=== PATIENT | male | born 1960 | race Caucasian/White ===

== ENCOUNTER 2022-07-20 02:37 | Inpatient (IN) | payer MEDICARE, MEDICAID, SELFPAY ==
[2022-07-20] VITALS (42 sets, daily range): BP systolic 63–106; BP diastolic 31–73; PULSE 83–135; RESP 16–40; TEMP 36.6–37.4; O2SAT 83–99; BMI 21.9
--- NOTE | 2022-07-20 | ECHO_ITS ---
Patient Info Name: Jenaro Calvo Age: 61 years : 1960 Gender: Male Ht: 73 in Wt: 166 lbs BSA: 1.97 m2 HR: 106 bpm BP: 106 / 72 mmHg Heart Rhythm: Tachycardia, Sinus Rhythm Technical Quality: Fair Exam Date: 07/20/2022 12:11 PM Exam Location: [facility] Pulmonary Patient Status: Inpatient Admit Date: 07/20/2022 Staff Ordering Physician: Dennis Lazo MD Roller Skater: La Campbell RDCS Attending Provider: Ute Lutz MD Referring Physician: Clifton CLARKE; Exam Type: CA echo doppler color flow Study Info Indications - elevated bnp, low bp elevated trop Complete two-dimensional, color flow and Doppler transthoracic echocardiogram is performed. Summary 1. Complete two-dimensional, color flow and Doppler transthoracic echocardiogram is performed. 2. Left ventricular chamber dimension is normal. 3. Left ventricular systolic function is mildly reduced, estimated at 45-50%. 4. The left ventricular diastolic function is grade I diastolic dysfunction. 5. Right ventricular systolic function is normal. 6. Suspected patent foramen ovale visualized by color flow imaging. 7. There is moderate mitral valve regurgitation. 8. There is moderate tricuspid valve regurgitation. Left Ventricle Left ventricular chamber dimension is normal. Left ventricular systolic function is mildly reduced, estimated at 45-50%. There is no increased left ventricular wall thickness. The left ventricular diastolic function is grade I diastolic dysfunction. Right Ventricle Right ventricular chamber dimension is normal. Right ventricular systolic function is normal. Left Atria Left atrial chamber dimension is normal. Right Atria Right atrial chamber dimension is normal. Atrial Septum Suspected patent foramen ovale visualized by color flow imaging. Aortic Valve The aortic valve is trileaflet. There is mild aortic valve sclerosis. There is no aortic valve stenosis. There is no aortic valve regurgitation. Pulmonic Valve The pulmonic valve is not well visualized. Mitral Valve The mitral valve has normal leaflets. There is no mitral valve stenosis. There is moderate mitral valve regurgitation. Tricuspid Valve There is no significant tricuspid valve stenosis. There is moderate tricuspid valve regurgitation. Pericardium/Pleural There is no pericardial effusion. Inferior Vena Cava Normal inferior vena cava with <50% collapse upon inspiration consistent with normal right atrial pressure, 3 mmHg. Aorta The aortic root size at the sinus of Valsalva is normal. Left Ventricular Outflow Tract Name Value Normal LVOT 2D LVOT Diameter 2.0 cm LVOT Doppler LVOT Peak Gradient 4 mmHg LVOT Mean Gradient 2 mmHg LVOT VTI 16 cm LVOT VTI/AV VTI Ratio 0.7 LVOT Stroke Volume 52 ml LVOT CO 5.1 l/min LVOT CI 2.6 l/min/m2 Pulmonic Valve
--- NOTE | ~2022-07-20 | XR_ITS ---
Portable chest x-ray Comparison: None Clinical History: Dyspnea Findings: Extensive right lower lobe consolidation is present. Left lung clear. Cardiomediastinal s ilhouette is stable. Bones and soft tissues are unremarkable. Impression: Right lower lobe pneumonia. Reviewed, dictated and finalized at location . Impression: Right lower lobe pneumonia.
--- NOTE | ~2022-07-20 | CT_ITS ---
Non-contrast CT scan of the Abdomen and Pelvis Clinical indication: Shortness of breath, fever, abdominal pain Technique: 2.5 mm axial scans were obtained through the abdomen and pelvis without intravenous or or al contrast. Dose reduction technique was used on this scan by utilizing automated exposure control a nd iterative reconstruction technique. The dose-length product (DLP) was 478.84 mGy-cm. Findings: Images through the lung bases reveal extensive consolidation of the visualized right lower lobe. Suspected underlying 6 mm right lower lobe pulmonary nodule also noted (axial image 6).. There is no evidence of renal or ureteral calculi. The kidneys and the ureters are nondilated. The liver, spleen, pancreas, gallbladder, and adrenals appear normal. There is no aortic aneurysm. There is no evidence of bowel obstruction. Images through the pelvis are degraded by streak artifact from left hip arthroplasty. There is no osvaldo dence of ascites or lymphadenopathy. Urinary bladder grossly unremarkable. No pelvic mass evident. Impression: Extensive pneumonia of the visualized right lower lobe. Possible additional 6 mm right lower lobe pulmonary nodule. According to Fleischner Society criteria, for a low-risk patient, 6-12 month follow-up CT recommended, then consider additional 18-24 month fo llow-up CT. For a high-risk patients, follow-up CT scans at both 6-12 months and at 18-24 months, are recommended. No significant abnormality seen in the abdomen or pelvis otherwise. Reviewed, dictated and finalized at [facility]. Impression: Extensive pneumonia of the visualized right lower lobe. Possible additional 6 mm right lower lobe pulmonary nodule. According to Fleisc hner Society criteria, for a low-risk patient, 6-12 month follow-up CT recommen ded, then consider additional 18-24 month follow-up CT. For a high-risk patient s, follow-up CT scans at both 6-12 months and at 18-24 months, are recommended. No significant abnormality seen in the abdomen or pelvis otherwise.
--- NOTE | ~2022-07-20 | US_ITS ---
EXAMINATION: US renal BI DATE: 07/20/2022 14:11 INDICATION: Acute on chronic kidney disease. TECHNIQUE: Multiple ultrasound grayscale images of the kidneys were obtained. COMPARISON: CT abdomen and pelvis 07/20/2022 FINDINGS: The right kidney measures 13.0 x 6.1 x 4.9 cm. The left kidney measures 11.7 x 5.8 x 4.7 cm. The kidn eys demonstrate normal parenchymal echogenicity. There is a 1.4 cm cyst in right kidney. There is no hydronephrosis. The bladder is normal. IMPRESSION: 1. Normal kidney sizes. No hydronephrosis. Reviewed, dictated and finalized at location A.
--- NOTE | 2022-07-20 02:51 | ECG_ITS ---
Measurements Intervals [place] Rate: 93 P: 73 WA: 143 QRS: -4 QRSD: 114 T: 68 QT: 369 QTc: 460 Interpretive Statements SINUS RHYTHM INTRAVENTRICULAR CONDUCTION DELAY BORDERLINE ECG NO PREVIOUS ECG AVAILABLE FOR COMPARISON Electronically Signed On 07-20-2022 6:37:40 CDT by Morgan Medley D.O.
[2022-07-20] MEDS: SODIUM CHLORIDE 0.9% IV 1,000 ML 999 ML IV CONT ×3 (03:10→03:58)
--- NOTE | 2022-07-20 03:21 | PC.NURSE ---
Pt report given to TAMMI Rivera at this time.
[2022-07-20 03:22] LABS: Basophils Absolute Auto 0.1 K/mm3 (0.0-0.1); Basophils Percent Auto 0.9 % (0.2-1.2); Eosinophils Absolute Auto 0.1 K/mm3 (0-0.3); Eosinophils Percent Auto 0.6 % (0-4.4); Hematocrit 35.7 % (42.0-52.0); Immature Granulocyte Absolute 0.22 K/mm3 (0.00-0.031); Immature Granulocyte Percent A 1.6 % (0-0.5); Lymphocytes Percent Auto 10.8 % (18.3-44.2); Mean Corpuscular HGB Conc 33.6 g/dl (32-36); Mean Corpuscular Hemoglobin 29.5 pg (26-34); Mean Corpuscular Volume 87.7 fl (80-100); Mean Platelet Volume 10.5 fl (7.4-10.4); Monocytes Absolute Auto 0.6 K/mm3 (0.1-0.6); Monocytes Percent Auto 4.3 % (2.6-8.5); Neutrophils Absolute Auto 11.4 K/mm3 (1.3-6.7); Neutrophils Percent Auto 81.8 % (45.5-73.1); Platelet Count Result 146 k/mm3 (150-375); Red Blood Count 4.07 M/mm3 (4.6-6.20); Red Cell Distribution Width 13.3 % (11.5-14.5); White Blood Count 13.9 K/mm3 (4.5-10.0)
[2022-07-20] MEDS: ALBUTEROL SULFATE NEB 2.5 MG/3 ML INH INHALATION ×3 (03:24→20:43)
[2022-07-20] MEDS: IPRATROPIUM BR 0.02% INH SOLN 0.5 MG/2.5 ML VIAL INHALATION (03:25)
[2022-07-20 03:29] LABS: Alveolar/Arterial O2 Gradient 39.4 mmHg; Base Excess ABG -2.4 mEq/l (+/-2.0); Fractional Inspired Oxygen 21 %; HCO3 ABG 21.5 mEq/l (22.0-26.0); Oxygen Content ABG 15.8 %vol (16.0-22.0); Oxygen Saturation ABG 94.3 % (95.0-100.0); Oxyhemoglobin 90.3 % THb (90.0-100.0); PCO2 ABG 34.2 mmHg (35.0-45.0); PO2 ABG 69.4 mmHg (80.0-100.0); Total Hemoglobin 12.4 g/dL (12.0-18.0); pH ABG 7.416 (7.350-7.450)
[2022-07-20 03:30] LABS: Device ROOM AIR; Modified Allen's Test Pass; Site Drawn LEFT RADIAL
[2022-07-20 03:32] LABS: Alanine Aminotransferase 27 U/L (6-50); Albumin Level 3.4 g/dL (3.5-5.1); Alkaline Phosphatase 92 U/L (38-126); Anion Gap 9 mmol/L (8-16); Aspartate Amino Transferase 31 U/L (17-59); Bilirubin,Total 0.9 mg/dL (0.2-1.3); Blood Urea Nitrogen 77 mg/dL (9-20); Carbon Dioxide 25 mmol/L (22-30); Chloride 99 mmol/L (98-107); Estimated CRCL calculation 31 ml/min; Estimated Glomerular Filt Rate 25; Glucose 101 mg/dL (65-110); Magnesium 2.3 mg/dL (1.6-2.3); Potassium 3.2 mmol/L (3.4-5.0); Sodium 133 mmol/L (137-145)
[2022-07-20 03:33] LABS: Lactic Acid Reflex 1.1 mmol/L (0.7-2.0)
[2022-07-20 03:36] LABS: INR 1.1
--- NOTE | 2022-07-20 03:45 | PC.NURSE ---
0320 Assumed pt care from Lory Aponte RN
[2022-07-20 03:49] LABS: NT Pro B Type Natriuretic Pept 1490 pg/mL (19.9-100); Troponin I 0.134 ng/mL (0.000-0.034)
[2022-07-20] MEDS: ONDANSETRON INJ 4 MG/2 ML VIAL IV PUSH (03:51)
[2022-07-20 04:12] LABS: Procalcitonin 27.9 ng/mL
--- NOTE | 2022-07-20 05:00 | ED.GENADULT ---
HPI - General Adult General Chief complaint: Upper Respiratory Infection Stated complaint: COVID? fevers, cough, chills Time Seen by Provider: 07/20/22 02:56 History of Present Illness HPI narrative: Cough and COVID exposure. The patient reports that he has recently been exposed to COVID and reports that he has been having shortness of breath and cough for the last week. Patient states he got worse this evening and decided to come to the emergency department. The patient reports he has history of HIV and is currently not on antiretrovirals and last CD4 count was approximately January. The patient states that he has had generalized malaise and has had some abdominal discomfort with this as well. Related Data Allergies Allergy/AdvReac Type Severity Reaction Status Date / Time No Known Allergies Allergy Verified 07/20/22 02:38 Review of Systems Review of Systems: A 10 system review of systems was completed on the patient and is negative except for what is stated in the HPI. Nursing and ancillary documentation was reviewed. Exam Narrative: GENERAL: Ill-appearing, well-nourished, and in no acute distress. HEAD: Normocephalic, atraumatic. EYES: PERRLA and EOMI. ENT: Nares clear, no rhinorrhea or epistaxis. Mucous membranes moist. NECK: Supple. CHEST: Clear to auscultation. No respiratory distress. HEART: Regular rate and rhythm. No murmur heard. Normal peripheral pulses. ABDOMEN: Soft, mild tenderness to palpation, nondistended, normal active bowel sounds. EXTREMITIES: Normal range of motion. No edema. SKIN: Warm, dry, no rash. NEURO: No focal deficits. Alert and oriented x3. PSYCH: Normal mood and affect. Course Vital Signs Vital signs: Vital Signs Temperature 36.9 C 07/20/22 02:43 Pulse Rate 101 H 07/20/22 02:43 Respiratory Rate 16 07/20/22 02:43 Blood Pressure 71/56 L 07/20/22 02:43 Pulse Oximetry 89 L 07/20/22 02:43 Oxygen Delivery Room Air 07/20/22 02:43 Temperature 36.9 C 07/20/22 02:43 Pulse Rate 84 07/20/22 05:46 Respiratory Rate 26 H 07/20/22 05:46 Blood Pressure 106/72 07/20/22 05:46 Pulse Oximetry 98 07/20/22 05:46 Oxygen Delivery Room Air 07/20/22 02:43 Medical Decision Making MDM Narrative Medical decision making narrative: Differential diagnosis includes pneumonia, sepsis, COVID-19, ACS, intra-abdominal infection, Patient was initially hypotensive with a pressure of 71/56. Fluid resuscitation was initiated and patient was given 30/kg normal saline boluses Pressure has improved to 103/69 with a MAP of 79. Laboratory studies were obtained showed a white count of 13.9 with 1.6% immature granulocytes ABG showed a pH of 7.41 PCO2 of 34 and a PO2 of 69 with a saturation of 94% on room air electrolytes showed a lactic acid of 1.1 liver enzymes within normal limits troponin was mildly elevated at 0.134 BNP was 1490 Chest x-ray interpreted by me showed evidence of a right lower lobe infiltrate CT scan of the abdomen pelvis has been ordered and results are currently pending as at this time Vital Signs Vital Signs: Vital Signs Temperature 36.9 C 07/20/22 02:43 Pulse Rate 101 H 07/20/22 02:43 Respiratory Rate 16 07/20/22 02:43 Blood Pressure 71/56 L 07/20/22 02:43 Pulse Oximetry 89 L 07/20/22 02:43 Oxygen Delivery Room Air 07/20/22 02:43 Temperature 36.9 C 07/20/22 02:43 Pulse Rate 84 07/20/22 05:46 Respiratory Rate 26 H 07/20/22 05:46 Blood Pressure 106/72 07/20/22 05:46 Pulse Oximetry 98 07/20/22 05:46 Oxygen Delivery Room Air 07/20/22 02:43 Lab Data 07/20/22 03:14 07/20/22 03:14 Labs: Lab Results 07/20/22 07/20/22 07/20/22 Range/Units 03:14 03:14 03:14 WBC 13.9 H (4.5-10.0) K/mm3 RBC 4.07 L (4.6-6.20) M/mm3 Hgb 12.0 L (14.0-18.0) g/dL Hct 35.7 L (42.0-52.0) % MCV 87.7 (80-100) fl MCH 29.5 (26-34) pg MCHC 33.6 (32-36) g/dl RDW 13.
[2022-07-20] MEDS: ASPIRIN 81 MG CHEWABLE TABLET 324 MG PO (05:08)
[2022-07-20 05:48] LABS: Influenza A QL RT-PCR Negative (Negative); Influenza B QL RT-PCR Negative (Negative); RSV RNA, RT-PCR Negative (Negative); SARS-CoV-2 RNA PCR Negative
[2022-07-20 06:32] LABS: Troponin I 0.094 ng/mL (0.000-0.034)
[2022-07-20] MEDS: MORPHINE SULFATE (*CRX) 4 MG/ML INJ IV PUSH (06:55)
[2022-07-20] MEDS: SODIUM CHLORIDE 0.9% IV 1,000 ML 500 ML IV CONT (08:26)
--- NOTE | 2022-07-20 08:34 | PC.NURSE ---
Dr Samaniego aware of low BP. Verbal order for 1000 cc bolus of NS @ 500 mL/ hour. Want to see response in BP before being admitted to IMU.
[2022-07-20 08:42] LABS: Appearance Urine Cloudy (Clear); Bacteria Urine None Seen /hpf; Bilirubin Urine Negative (Negative); Blood Urine Negative (Negative); Color Urine Yellow (Yellow); Glucose Urine UA Negative (Negative); Ketones Urine Negative (Negative); Leukocyte Esterase Ur Negative LEU/UL (Negative); Need Manual Microscopic Reviewed; Nitrate Urine Negative (Negative); Protein Urine 1+ mg/dL (Negative); RBC Urine 0-2 /hpf (0-2); Specific Grav Ur 1.013 (1.001-1.035); Squamous Epithelial Cell Urine Occasional /hpf (Few); WBC Urine 0-5 /hpf
[2022-07-20 08:43] LABS: Add Urine Microscopic? YES
--- NOTE | 2022-07-20 09:09 | PC.NURSE ---
Report called to IMU, nurse Bharat
--- NOTE | 2022-07-20 09:19 | PC.NURSE ---
pt admitted to IMU
--- NOTE | 2022-07-20 09:29 | ADMGEN ---
This patient, Jenaro Calvo, was admitted to IMU Room 213-01. Patient/family oriented to hospital policies and general routines including ID bracelet, bed and alarms, visiting hours, pain management, procedures, bathroom and other care routines, personal items, smoking policy, room service/diet, and visiting hours. Information on how to activate the Rapid Response Team has been discussed. Patient/Family are encouraged to report perceived risks to care and to ask questions if they do not understand what they are told or what they should do.
[2022-07-20] MEDS: SODIUM CHLORIDE 0.9% IV 1,000 ML 125 ML IV CONT (10:32)
[2022-07-20] MEDS: POTASSIUM CHLORIDE 20 MEQ PACKET (FOR LIQUID) 40 MEQ PO (10:40)
--- NOTE | 2022-07-20 11:49 | PM.IMHP ---
H&P: HPI History of Present Illness Date/Time: 07/20/22 11:49 Chief Complaint: Cough and COVID exposure.? The patient reports that he has recently been exposed to COVID and reports that he has been having shortness of breath and cough for the last week.? Patient states he got worse this evening and decided to come to the emergency department.? The patient reports he has history of HIV and is currently not on antiretrovirals and last CD4 count was approximately January.? The patient states that he has had generalized malaise and has had some abdominal discomfort with this as well. [facility] Family History Family History Other Unknown family medical history Social History Social History Smoking status: Former smoker Second hand tobacco smoke exposure: No Alcohol intake: never Substance use: never Substance use type: does not use Lack of Transportation: No Lack of Food: Sometimes True Current Housing: I Have Housing Concerned About Future Housing: No Difficulty Paying Gas/Electric Bills: YES Difficulty Paying for Meds: YES Currently Unemployed: No Education: High School Diploma/GED Difficulty w/ Childcare or Family Care: No Living arrangements: with family Gender identity (if verbalized by the patient): Male Sexual Orientation (if Verbalized by the Patient): Lesbian, Blancas, or Homosexual Spiritual care concerns: No Meds Home Medications and Allergies Home Medications Medication Instructions Recorded Confirmed Type dolutegravir 50 mg-rilpivirine 25 1 tablet PO DAILY 07/20/22 07/20/22 History mg tablet (Juluca) Allergies Allergy/AdvReac Type Severity Reaction Status Date / Time No Known Allergies Allergy Verified 07/20/22 02:38 Vital Signs Vital Signs - 24 hr 07/20/22 02:43 07/20/22 03:02 07/20/22 03:23 Temperature 98.5 F Pulse Rate 101 H 92 91 Respiratory Rate 16 30 H 24 H Blood Pressure 71/56 L 76/57 L Pulse Oximetry 89 L 93 Oxygen Delivery Room Air 07/20/22 03:40 07/20/22 03:51 07/20/22 04:01 Temperature Pulse Rate 89 86 83 Respiratory Rate 24 H 28 H 27 H Blood Pressure 81/58 L 87/56 L Pulse Oximetry 99 Oxygen Delivery 07/20/22 04:16 07/20/22 04:46 07/20/22 05:01 Temperature Pulse Rate 83 84 87 Respiratory Rate 28 H 31 H 28 H Blood Pressure 91/62 L 99/62 L 103/69 Pulse Oximetry 99 98 Oxygen Delivery 07/20/22 05:16 07/20/22 05:31 07/20/22 05:46 Temperature Pulse Rate 85 84 84 Respiratory Rate 27 H 27 H 26 H Blood Pressure 101/68 104/71 106/72 Pulse Oximetry 97 98 98 Oxygen Delivery 07/20/22 06:01 07/20/22 06:35 07/20/22 08:13 Temperature 98.2 F 99.4 F Pulse Rate 88 110 H Respiratory Rate 25 H 22 H Blood Pressure 101/73 86/58 L Pulse Oximetry 99 95 Oxygen Delivery 07/20/22 07:00 07/20/22 07:02 07/20/22 07:15 Temperature Pulse Rate 127 H 135 H 118 H Respiratory Rate 40 H 31 H 18 Blood Pressure Pulse Oximetry 87 L 83 L Oxygen Delivery 07/20/22 07:16 07/20/22 07:30 07/20/22 07:31 Temperature Pulse Rate 118 H 114 H 115 H Respiratory Rate 24 H 32 H 28 H Blood Pressure 93/61 L 76/56 L Pulse Oximetry Oxygen Delivery 07/20/22 07:45 07/20/22 07:46 07/20/22 08:00 Temperature Pulse Rate 115 H 115 H 113 H Respiratory Rate 34 H 34 H 33 H Blood Pressure 63/34 L Pulse Oximetry Oxygen Delivery 07/20/22 08:01 07/20/22 08:18 07/20/22 08:35 Temperature Pulse Rate 114 H 108 H 114 H Respiratory Rate 27 H 27 H 21 H Blood Pressure 67/31 L Pulse Oximetry 96 94 Oxygen Delivery 07/20/22 08:30 07/20/22 08:45 07/20/22 08:59 Temperature 98.5 F Pulse Rate 108 H Respiratory Rate 30 H Blood Pressure 81/61 L 92/61 L 92/63 L Pulse Oximetry 95 Oxygen Delivery 07/20/22 09:25 07/20/22 10:00 07/20/22 10:56 Temperature 98.8
[2022-07-20] MEDS: LACTATED RINGERS 1,000 ML 75 ML IV CONT ×2 (12:58→23:52)
--- NOTE | 2022-07-20 14:15 | PC.NURSE ---
This patient, Jenaro Calvo, was received from IMU RM 213 on 07/20/22 at 1410. Patient/family oriented to unit policies and routines. Report received from Bharat CADENA.
--- NOTE | 2022-07-20 14:44 | PM.CNCAR ---
Assessment and Plan Assessment and plan (1) Elevated troponin: Code(s): R77.8 - Other specified abnormalities of plasma proteins Status: Acute Assessment and Plan: His troponin levels (0.134, 0.094) are elevated in the setting of sepsis and hypotension. Troponin mildly elevated and flat - not consistent with ACS. He is not having any chest pain. EKG shows sinus rhythm, no ST-T wave abnormalities. Will review echo and leave any recommendations based on the results of that study. No indication for stress testing at this time. History of Present Illness History of Present Illness Consult date/time: 07/20/22 14:44 Requesting physician: Dennis Lazo MD Consult reason: Other (elevated troponin) Reason For Visit: Pneumonia/HIV/Respiratory Failure Narrative: Mr. Calvo is a 61 year old male with a medical history of HIV. He comes to the hospital with complaints of generalized weakness, shrotness of breath, and abdominal pain. He was recently exposed to COVID and assumed his symptoms were related to this. He has tested negative for COVID but has been found to have a right lower lobe pneumonia. Two troponin levels have been drawn during his evaluation and are mildly elevated. Cardiology has been asked to see him because of this. He denies any chest pain, does endorse some right rib pain described as a stabbing pain that is worse with deep breathing. Currently he is pain free. He is resting comfortably in bed on room air. Review of Systems Review of Systems: All systems reviewed & are unremarkable except as noted in HPI and below PMFSH Family History Family History Other Unknown family medical history Social History Social History Smoking status: Former smoker Second hand tobacco smoke exposure: No Alcohol intake: never Substance use: never Substance use type: does not use Lack of Transportation: No Lack of Food: Sometimes True Current Housing: I Have Housing Concerned About Future Housing: No Difficulty Paying Gas/Electric Bills: YES Difficulty Paying for Meds: YES Currently Unemployed: No Education: High School Diploma/GED Difficulty w/ Childcare or Family Care: No Living arrangements: with family Gender identity (if verbalized by the patient): Male Sexual Orientation (if Verbalized by the Patient): Lesbian, Blancas, or Homosexual Spiritual care concerns: No Meds Home Medications and Allergies Home Medications Medication Instructions Recorded Confirmed Type dolutegravir 50 mg-rilpivirine 25 1 tablet PO DAILY 07/20/22 07/20/22 History mg tablet (Juluca) Allergies Allergy/AdvReac Type Severity Reaction Status Date / Time No Known Allergies Allergy Verified 07/20/22 02:38 Vital Signs Vital Signs - 24 hr 07/20/22 02:43 07/20/22 03:02 07/20/22 03:23 Temperature 36.9 C Pulse Rate 101 H 92 91 Respiratory Rate 16 30 H 24 H Blood Pressure 71/56 L 76/57 L Pulse Oximetry 89 L 93 Oxygen Delivery Room Air Fraction of Inspired Oxygen 07/20/22 03:40 07/20/22 03:51 07/20/22 04:01 Temperature Pulse Rate 89 86 83 Respiratory Rate 24 H 28 H 27 H Blood Pressure 81/58 L 87/56 L Pulse Oximetry 99 Oxygen Delivery Fraction of Inspired Oxygen 07/20/22 04:16 07/20/22 04:46 07/20/22 05:01 Temperature Pulse Rate 83 84 87 Respiratory Rate 28 H 31 H 28 H Blood Pressure 91/62 L 99/62 L 103/69 Pulse Oximetry 99 98 Oxygen Delivery Fraction of Inspired Oxygen 07/20/22 05:16 07/20/22 05:31 07/20/22 05:46 Temperature Pulse Rate 85 84 84 Respiratory Rate 27 H 27 H 26 H Blood Pressure 101/68 104/71 106/72 Pulse Oximetry 97 98 98 Oxygen Delivery Fraction of Inspired Oxygen 07/20/22 06:01 07/20/22 06:35 07/20/22 08:13 Temperature 36.8 C 37.4 C Pulse Rate 88 110 H Respiratory Rate 2
--- NOTE | 2022-07-20 15:19 | PC.NURSE ---
This patient, Jenaro Calvo, was transferred to [facility] on 07/20/22 at 1340. Personal belongings sent with patient. Report given to RN and questions answered. Appropriate documentation sent with patient.
[2022-07-20 22:29] LABS: Creatinine Urine 83.1 mg/dL
[2022-07-20 22:32] LABS: Sodium Urine Random 30 meq/L
[2022-07-21] VITALS (7 sets, daily range): BP systolic 98–125; BP diastolic 72–85; PULSE 83–120; RESP 16–18; TEMP 36.1–37.7; O2SAT 94–98
[2022-07-21 06:54] LABS: Basophils Absolute Auto 0.1 K/mm3 (0.0-0.1); Basophils Percent Auto 0.7 % (0.2-1.2); Eosinophils Percent Auto 0.4 % (0-4.4); Hematocrit 31.1 % (42.0-52.0); Hemoglobin 10.2 g/dL (14.0-18.0); Immature Granulocyte Absolute 0.21 K/mm3 (0.00-0.031); Immature Granulocyte Percent A 1.9 % (0-0.5); Lymphocytes Absolute Auto 1.85 K/mm3 (0.9-3.2); Lymphocytes Percent Auto 16.5 % (18.3-44.2); Mean Corpuscular HGB Conc 32.8 g/dl (32-36); Mean Corpuscular Hemoglobin 29.1 pg (26-34); Mean Corpuscular Volume 88.6 fl (80-100); Mean Platelet Volume 10.1 fl (7.4-10.4); Monocytes Absolute Auto 0.6 K/mm3 (0.1-0.6); Monocytes Percent Auto 5.6 % (2.6-8.5); Neutrophils Absolute Auto 8.4 K/mm3 (1.3-6.7); Neutrophils Percent Auto 74.9 % (45.5-73.1); Platelet Count Result 141 k/mm3 (150-375); Red Blood Count 3.51 M/mm3 (4.6-6.20); Red Cell Distribution Width 13.8 % (11.5-14.5); White Blood Count 11.2 K/mm3 (4.5-10.0)
[2022-07-21 07:23] LABS: Anion Gap 2 mmol/L (8-16); Blood Urea Nitrogen 48 mg/dL (9-20); Calcium 7.7 mg/dL (8.4-10.2); Carbon Dioxide 25 mmol/L (22-30); Chloride 104 mmol/L (98-107); Estimated CRCL calculation 50 ml/min; Estimated Glomerular Filt Rate 48; Glucose 88 mg/dL (65-110); Sodium 131 mmol/L (137-145)
[2022-07-21] MEDS: ALBUTEROL SULFATE NEB 2.5 MG/3 ML INH INHALATION (09:03)
[2022-07-21 09:53] LABS: Lactic Acid Reflex 1.1 mmol/L (0.7-2.0)
--- NOTE | 2022-07-21 12:08 | PM.IMPN ---
Progress Note: A&P Assessment and Plan (1) Pneumonia: Code(s): J18.9 - Pneumonia, unspecified organism Status: Acute Plan (1) Pneumonia: Continue IV antibiotics.? Respiratory status appears to be okay. Sepsis on admission.? The patient has chronic low blood pressure.? Appears to be at his baseline right now.? Monitor. Will continue IV fluids (2) HIV disease: Chronic (3) Acute renal insufficiency: Question baseline kidney function. Will check urine lytes Check renal ultrasound. Monitor kidney function and electrolytes.? Consider renal consult if this is felt to be related to an acute issue. (4) Hypoxia: Off oxygen now.? Monitor. (5) Elevated troponin: Also has elevated BNP. Will decrease IV fluids.? He does appear to be mildly volume depleted. ECHo showed ef 45-50% and grade I diastolic dysfunction, no regional wall motion abnormality cardiology consulted DVT prophylaxis Sq Lovenox Subjective Date/time seen: 07/21/22 12:08 Review of Systems Review of Systems: Patient was seen and examined at bedside, no complaints and noted improvement in his symptoms. All systems reviewed & are unremarkable except as noted in HPI and below Exam Narrative: General: alert and oriented Psych: appropriate mood nad affect Eyes: PERRLA Neck: Trachea midline, no new lesions Skin: no changes Lungs: CTA Cardiac: Normal S1,S2, no MGR ABD: soft, nd, nt, nbs Ext: no new lesions, no cce Vasc: Pulses intact Objective Data Vital Signs Vital Signs: Vital Signs - 24 hr 07/20/22 14:21 07/20/22 14:21 07/20/22 14:29 Temperature Pulse Rate 102 H 102 H 101 H Respiratory Rate 18 18 18 Blood Pressure Pulse Oximetry 93 Oxygen Delivery Room Air Fraction of Inspired Oxygen 07/20/22 14:55 07/20/22 16:00 07/20/22 20:00 Temperature 98.1 F 98.1 F 97.8 F Pulse Rate 108 H 108 H 109 H Respiratory Rate 20 20 16 Blood Pressure 91/64 L 91/64 L 104/73 Pulse Oximetry 95 95 98 Oxygen Delivery Fraction of Inspired Oxygen 07/20/22 20:43 07/20/22 20:48 07/20/22 20:51 Temperature Pulse Rate 106 H 106 H 103 H Respiratory Rate 18 18 Blood Pressure Pulse Oximetry 94 Oxygen Delivery Room Air Fraction of Inspired Oxygen 07/20/22 21:51 07/21/22 05:30 07/21/22 09:06 Temperature 97.0 F L Pulse Rate 103 H 83 88 Respiratory Rate 18 16 18 Blood Pressure 98/72 L Pulse Oximetry 94 97 Oxygen Delivery Room Air Fraction of Inspired Oxygen 21 07/21/22 09:07 07/21/22 09:15 Temperature Pulse Rate 90 Respiratory Rate 18 Blood Pressure Pulse Oximetry 94 Oxygen Delivery Room Air Fraction of Inspired Oxygen Intake/Output Intake/Output: Intake & Output 07/18/22 07/19/22 07/20/22 07/21/22 23:59 23:59 23:59 23:59 Intake Total 6505 540 Balance 6505 540 Meds/Results Medications: Active Medications Generic Name Dose Route Start Last Admin Trade Name Freq PRN Reason Stop Dose Admin Albuterol 2.5 mg 07/21/22 09:53 Albuterol Sulfate Neb 2.5 Mg/3 Ml Inh INHALATION Q6HRT PRN Shortness Of Breath Ceftriaxone Sodium 1 gm in 50 mls @ 100 mls/hr 07/21/22 06:00 07/21/22 07:31 Rocephin 1 Gm/Ns 50 Ml IVPB Infused Q24H GLENN Infusion Azithromycin 500 mg in 250 mls @ 250 mls/hr 07/21/22 06:00 07/21/22 06:52 Zithromax IVPB Infused Q24H GLENN Infusion Lactated Ringer's 1,000 mls @ 75 mls/hr 07/20/22 11:50 07/20/22 23:52 Lr - Lactated Ringers Iv IV CONT 75 mls/hr .[id number] GLENN Administration Perflutren Lipid Microsphere 0 ml 07/20/22 11:52 Perflutren Lipid Microspheres 1.5 Ml Vial Diluted To 10 Ml Total Volume IV PUSH 07/22/22 11:52 ONCE PRN adequate visualization Protocol Radiology Results: ITS Impressions Abdomen/Pelvis CT 07/20/22 05:49 Impression: Extensive pneumonia of the visualized right lower lobe. Possible additional 6 mm right lower lobe pulmonary nodule. Echo
[2022-07-21] MEDS: ACETAMINOPHEN 325 MG TABLET 650 MG PO (18:34)
[2022-07-21] MEDS: LACTATED RINGERS 1,000 ML 75 ML IV CONT (18:34)
[2022-07-22] MEDS: LACTATED RINGERS 1,000 ML 75 ML IV CONT (05:22)
[2022-07-22 06:00] VITALS: BP 126/83; PULSE 91; RESP 16; TEMP 37.4; O2SAT 95
[2022-07-22 08:15] VITALS: PULSE 91; RESP 16; O2SAT 95
[2022-07-22 08:56] LABS: Basophils Absolute Auto 0.1 K/mm3 (0.0-0.1); Basophils Percent Auto 0.5 % (0.2-1.2); Eosinophils Percent Auto 0.4 % (0-4.4); Hematocrit 31.5 % (42.0-52.0); Hemoglobin 10.4 g/dL (14.0-18.0); Immature Granulocyte Percent A 1.8 % (0-0.5); Lymphocytes Absolute Auto 2.23 K/mm3 (0.9-3.2); Lymphocytes Percent Auto 20.5 % (18.3-44.2); Mean Corpuscular Hemoglobin 28.3 pg (26-34); Mean Corpuscular Volume 85.8 fl (80-100); Mean Platelet Volume 9.4 fl (7.4-10.4); Monocytes Absolute Auto 0.5 K/mm3 (0.1-0.6); Monocytes Percent Auto 4.8 % (2.6-8.5); Neutrophils Absolute Auto 7.8 K/mm3 (1.3-6.7); Platelet Count Result 178 k/mm3 (150-375); Red Blood Count 3.67 M/mm3 (4.6-6.20); White Blood Count 10.9 K/mm3 (4.5-10.0)
[2022-07-22 09:12] LABS: Alanine Aminotransferase 22 U/L (6-50); Albumin Level 2.7 g/dL (3.5-5.1); Alkaline Phosphatase 72 U/L (38-126); Anion Gap 4 mmol/L (8-16); Aspartate Amino Transferase 27 U/L (17-59); Bilirubin,Total 0.5 mg/dL (0.2-1.3); Blood Urea Nitrogen 26 mg/dL (9-20); Calcium 7.5 mg/dL (8.4-10.2); Carbon Dioxide 25 mmol/L (22-30); Chloride 106 mmol/L (98-107); Estimated CRCL calculation 69 ml/min; Estimated Glomerular Filt Rate > 60; Glucose 92 mg/dL (65-110); Potassium 3.5 mmol/L (3.4-5.0); Sodium 135 mmol/L (137-145)
[2022-07-22 09:17] LABS: Troponin I 0.038 ng/mL (0.000-0.034)
[2022-07-22] MEDS: ENOXAPARIN 40 MG/0.4 ML SYRINGE SUB-Q (09:39)
--- NOTE | 2022-07-22 11:24 | PCCCNOTE ---
On 07/22/22, the student, [Kim Khalil], provided care and completed [facility] documentation on this patient. I have reviewed the student's documentation and agree with the findings.
--- NOTE | 2022-07-22 11:36 | PM.DS ---
DS: Admitting Diagnosis Discharge Date 07/22/22 Admitting Diagnosis PNA DS: Discharge Diagnosis Discharge Diagnosis Plan (1) Pneumonia: 2 days of Rocephin and Azithromycin Sepsis on admission.? The patient has chronic low blood pressure.? Appears to be at his baseline right now.? Monitor. patient asymptomatic now and BP is stable. Discharged on 7 days of Levaquin F/u with PCP in 3-5 days and ID as scheduled (2) HIV disease: Chronic (3) Acute renal insufficiency, resolved Question baseline kidney function. Will check urine lytes Renal ultrasound unremarkable cr normal (4) Hypoxia, resolved Off oxygen now.? Monitor. (5) Elevated troponin: cardiology will follow up outpatient in 3 weeks Reduced EF and Grade I diastolic dysfunction No edema ECHO showed Ef 45-50% cardiology followed and f/u outpatient in 3 week DVT prophylaxis Sq Lovenox DS: Summary Hospital Course Hospital Course: Presented to [facility] ER on SOB, treated for PNA with Rocephin and Azithromycin, also had elevated troponin, [facility] and grade i diastolic no regional wall motion abnormlalities. cardiology reviewed and will f/u outpatient. Patient noted marked improvement and was discharge on 7 day course Levaquin. F/u with PCP in 3-5 dayd, ID as scheduled adn cardiology in 3-5 weeks Time Spent with Patient Time attestation: Total time spent providing and/or coordinating discharge services: DS: Data Data Completed and Pending Labs on day of discharge: Labs from last 24 hours 07/22/22 07/22/22 08:39 08:39 WBC 10.9 H RBC 3.67 L Hgb 10.4 L Hct 31.5 L MCV 85.8 MCH 28.3 MCHC 33.0 RDW 14.0 Plt Count 178 MPV 9.4 Immature Gran % (Auto) 1.8 H Neut % (Auto) 72.0 Lymph % (Auto) 20.5 [place] % (Auto) 4.8 Eos % (Auto) 0.4 Baso % (Auto) 0.5 Lymph # (Auto) 2.23 [place] # (Auto) 0.5 Eos # (Auto) 0.0 Baso # (Auto) 0.1 Abs Immat Gran (auto) 0.20 H Absolute Neuts (auto) 7.8 H Absolute Nucleated RBC 0.0 Nucleated RBC % 0.0 Sodium 135 L Potassium 3.5 Chloride 106 Carbon Dioxide 25 Anion Gap 4 L BUN 26 H D Creatinine 1.10 Estim Creat Clear Calc 69 Estimated GFR > 60 Glucose 92 Calcium 7.5 L Total Bilirubin 0.5 AST 27 ALT 22 Alkaline Phosphatase 72 Troponin I 0.038 H* Total Protein 6.0 L Albumin 2.7 L Preliminary micro results at discharge 07/20/22 03:13 Blood Culture - Preliminary Blood 07/20/22 03:13 Blood Culture - Preliminary Blood Discharge Plan Discharge Attending physician on discharge: Meseret Kahn Consulting providers: Addis Hendrickson Discharging Clinician: Meseret Kahn Patient Disposition: Home, Self-Care Activity: as tolerated Diet: as tolerated Patient Instructions: Antibiotic Form Stand Alone Forms: General Discharge Information Follow-up/Referrals: Ivette,Saima Hauser [Primary Care Provider] - (f/u with PCP in 3-5 days F/u with regular ID as scheduled ) Amaury Gonzales MD [Physician] - 3 Weeks Discharge Medications: New levofloxacin 750 mg tablet 750 mg PO DAILY Qty: 7 0RF Continued Juluca 50-25 mg tablet 1 tablet PO DAILY Label Comments: Patient has been unable to obtain due to insurance issues Date of admission: 07/20/22 06:11 Primary Care Provider: Analisa Guerrero Admitting Provider: Ute Lutz V. Attending physician on admission: Ute Lutz V. Condition: Stable
== END 2022-07-22 13:00 | disposition home or self-care (01) | DRG 195 ==
LOC: ANHED 07:17 → ANHIMU 07:24 → ANH3MEDSUR 13:43
PROVIDERS: Chiropractor; Admitting Provider Internal Medicine; Emergency Provider Emergency Medicine; PCP Internal Medicine Infectious Disease; Visit Provider Internal Medicine
DX: J18.9 Pneumonia, unspecified organism (principal); Z21 Asymptomatic human immunodeficiency virus [HIV] infection status; R77.8 Other specified abnormalities of plasma proteins; N28.9 Disorder of kidney and ureter, unspecified; R09.02 Hypoxemia; Z20.822 Contact with and (suspected) exposure to COVID-19; Z87.891 Personal history of nicotine dependence
CPT/HCPCS: 36415; 36600; 71045; 74176; 76775; 80048; 80053; 81001; 82570; 82805; 83605; 83735; 83880; 84145; 84300; 84484; 85025; 85610; 85730; 87040; 87637; 93005; 93306; 94640; 96361; 96365; 96367; 96375; 99285; A9270; J0131; J0456; J0696; J1650; J2270; J2405; J7030; J7120

== ENCOUNTER 2023-05-03 16:34 | Emergency (ER) | payer MEDICARE, MEDICAID, SELFPAY ==
[2023-05-03 16:45] VITALS: BP 94/62; PULSE 84; RESP 16; TEMP 37.2; O2SAT 100
--- NOTE | 2023-05-03 22:52 | PC.NURSE ---
Pt called for EKG, no answer.
== END 2023-05-04 05:43 | disposition left against medical advice (07) ==
LOC: ANHED 23:45
PROVIDERS: PCP Internal Medicine Infectious Disease
DX: Z53.21 Procedure and treatment not carried out due to patient leaving prior to being seen by health care provider (principal)
CPT/HCPCS: 99199